=== PATIENT | female | born 1940 | race Caucasian/White ===

== ENCOUNTER 2016-03-10 13:52 | Emergency (ER) | payer OTHER, BC ==
--- NOTE | 2016-03-10 15:18 | CPEKG ---
Heart Rate: 77 RR Interval: 779 P-R Interval: 172 QRSD Interval: 102 QT Interval: 440 QTC Interval: 499 P [place]: 72 QRS [place]: 12 T Wave [place]: 50 EKG Severity - ABNORMAL ECG - EKG Impression: SINUS RHYTHM EKG Impression: PROBABLE LEFT ATRIAL ABNORMALITY EKG Impression: ABNRM R PROG, CONSIDER ASMI OR LEAD PLACEMENT EKG Impression: BORDERLINE PROLONGED QT INTERVAL Electronically Signed By: Giles Grant 10-Mar-2016 20:16:23
[2016-03-10 15:37] LABS: % IMMATURE GRANULYOCYTES 0.8 % (0.0-1.1); ABSOLUTE IMMATURE GRANULOCYTES 0.06 10^3/uL (0.00-0.10); ADD DIFF? NO; ADD MORPH? NO; ADD SCAN? NO; ATYPICAL LYMPHOCYTE FLAG 10 (0-99); FRAGMENT RBC FLAG 0 (0-99); HEMATOCRIT 41.2 % (38.0-47.0); HEMOGLOBIN 13.8 g/dL (12.6-16.3); LEFT SHIFT FLG 0 (0-99); LIPEMIA HEMOLYSIS FLAG 80 (0-99); MEAN CELL HEMOGLOBIN 31.1 pg (27.9-34.1); MEAN CELL HEMOGLOBIN CONCENTR. 33.5 g/dL (32.4-36.7); MEAN CELL VOLUME 92.8 fL (81.5-99.8); MEAN PLATELET VOLUME 8.8 fL (8.7-11.7); PLATELET CLUMPS FLAG 0 (0-99); PLATELET COUNT 199 10^3/uL (150-400); RED BLOOD CELL COUNT 4.44 10^6/uL (4.18-5.33)
[2016-03-10 15:58] LABS: ANION GAP 10 mEq/L (8-16); CALCIUM 9.1 mg/dL (8.5-10.4); CARBON DIOXIDE 28 mEq/l (22-31); CHLORIDE 103 mEq/L (97-110); GLOMERULAR FILTRATION RATE 54; GLUCOSE 145 mg/dL (70-100); POTASSIUM 4.3 mEq/L (3.5-5.2); SODIUM 141 mEq/L (134-144)
--- NOTE | 2016-03-10 16:12 | EDPHY ---
H & P Stated Complaint: Pain behind L knee x years;worse x 4days;brief episode sharp pain R breast Time Seen by Provider: 03/10/16 15:30 - Personal History Current Tetanus Diphtheria and Acellular Pertussis (TDAP): Yes Tetanus Vaccine Date: 2011 - Medical/Surgical History Hx Asthma: Yes Hx Chronic Respiratory Disease: No Hx Diabetes: No Hx Cardiac Disease: No Hx Renal Disease: No Hx Cirrhosis: No Hx Alcoholism: No Hx HIV/AIDS: No Hx Splenectomy or Spleen Trauma: No Other PMH: asthma, hysterectomy, left knee surgery, bladder suspension, tonsillectomy, sinus surgery, lerft foot x 2, hernia repair, parathyroid surgery , rright wrist ganglion cyst removal, bilateral brest biopsies x 2 - Social History Smoking Status: Never smoked Constitutional: Initial Vital Signs Temperature (C) 37.2 C 03/10/16 14:00 Heart Rate 75 03/10/16 14:00 Respiratory Rate 16 03/10/16 14:00 Blood Pressure 153/77 H 03/10/16 14:00 O2 Sat (%) 93 03/10/16 14:00 O2 Delivery Mode Room Air Allergies/Adverse Reactions: cefuroxime axetil [From Ceftin] Allergy (Intermediate, Verified 09/26/14 21:20) Hives Home Medications: Medication Instructions Recorded Albuterol [Proventil Inhaler HFA 1 - 2 puffs IH Q4 PRN 12/05/11 (*)] Montelukast Sodium [Singulair 10 10 mg PO DAILY 12/05/11 mg (*)] Aspirin [Aspirin 81mg (*)] 81 mg PO DAILY@18 09/18/14 Calcium Carbonate [Oyster Shell 1,000 mg PO DAILY@18 09/18/14 Calcium 500 mg (*)] Cholecalciferol Vit D3 [Vitamin D3 5,000 units PO DAILY@18 09/18/14 (*)] Citalopram [CeleXA 20 MG] 30 mg PO DAILY 09/18/14 Fluticasone Nasal [Flonase Nasal 2 sprays NASAL DAILY 09/18/14 [place]] Fluticasone/Salmeterol [Advair Hfa 2 puffs IH BID 09/18/14 115-21 Mcg Inhaler] Levothyroxine [Synthroid 100 mcg 50 mcg PO DAILY06 09/18/14 (*)] Polyethylene Glycol 3350 [Miralax 8.5 gm PO DAILY 09/18/14 17 gm (*)] Simvastatin [Zocor] 10 mg PO DAILY@18 09/18/14 Verapamil ER [Calan SR/ER 240MG 240 mg PO DAILY8 09/18/14 (*)] predniSONE 10 mg PO DAILY PRN 09/18/14 traZODone [traZODONE 100MG (*)] 100 mg PO HS 09/18/14 Azapantoprazole 03/10/16 Medical Decision Making ED Course/Re-evaluation: CHIEF COMPLAINT: Left leg pain, resolved chest pain HISTORY OF PRESENT ILLNESS: The patient is a 75 y/o female, with remote history of DVT, arriving with her complaining of left leg pain onset this morning and 20 minutes of chest pain. Her leg pain is primarily localized to her left calf and radiates up the back of her thigh. She also had a 20-minute episode of sharp, constant pain underneath her right breast that was associated with nausea. She says this pain feels exactly like a previous kidney stone. She is not on anticoagulants. REVIEW OF SYSTEMS: A 10 point review of systems was performed and is negative with the exception of the elements mentioned in the history of present illness. PHYSICAL EXAM: General Appearance: Alert, well hydrated, appropriate, and non-toxic appearing. Head: Atraumatic without scalp tenderness or obvious injury Eyes: Pupils equal, round, reactive to light and accommodation, EOMI, no trauma , no injection. Ears: Clear bilaterally, no perforation, normal landmarks Nose: Atraumatic, no rhinorrhea, clear. Throat: There is no erythema or exudates, no lesions, normal tonsils, mucus membranes moist. Neck: Supple, 2+ carotid upstroke, non-tender, no lymphadenopathy. Respiratory: No retractions, no distress, no wheezes, and no accessory muscle use. Lungs are clear to auscultation bilaterally. Cardiovascular: Regular rate and rhythm, rubs, or gallops. Bilateral carotid, radial, dorsalis pedis, and posterior tibial pulses intact. Good capillary refill all extremities. 2/6 systolic ejection murmur crescendo/decrescendo Gastrointestinal: Abdomen is soft, non-tender, non-distended, no masses, no rebound, no guarding, no peritoneal signs. Musculoskeletal: Normal active ROM of all extremities, atraumatic. Neurological: Alert, appropriate, and interactive. The patient has normal DTRs and non-focal cranial nerves, motor, sensory, and cerebellar exam. Skin: No rashes, good turgor, no nodules on palpation. PAST MEDICAL HISTORY: Remote history of DVT without PE, heart murmur, kidney stone FAMILY HISTORY: Daughter with bicuspid aortic valve and aneurysm SOCIAL HISTORY: at bedside DIAGNOSTICS/PROCEDURES/CRITICAL CARE TIME: The 12 lead EKG was interpreted by myself. Sinus rhythm rate 77, abnormal R wave progression, borderline prolonged QT interval. See hard copy and/or "tracemaster" electronic copy for interpretation. Study: Ultrasound of the: Left lower extremity Indication: Pain, previous DVT Results: US scan of the leg was obtained. The results of the study are no DVT. The study was read by the radiologist, Dr. Bergeron. I viewed the images myself on the PACS system. Study: CTA of the Chest Indication: Elevated d-dimer, chest pain, leg pain Results: CTA scan of the chest was obtained. The results of the study are no PE. The study was read by the radiologist, Dr. Dexter. I viewed the images myself on the PACS system. DIFFERENTIAL DIAGNOSIS: The differential diagnosis for the patient's leg pain and chest pain included but was not limited to hypoalbuminemia, congestive heart failure, cor pulmonale, venous stasis, trauma, DVT, PE, cardiac ischemia, kidney stone. MEDICAL DECISION MAKING: This is a healthy 75 y/o female with a remote history of DVT complaining of left leg pain and now-resolved 20-minute episode of chest pain today. She denies shortness of breath and is not hypoxemic here. IV established. Labs drawn including CBC, CHEM, d-dimer. UA ordered. Plan for left leg ultrasound and CTA if US or d-dimer is positive. 1610: D-dimer elevated at .55, labs otherwise unremarkable. Discussed these findings with the patient and recommended chest CTA. She agrees with CT. 1650: CT negative for PE. Patient will be discharged with referral to PCP for follow up. Strict return precautions given. Patient is comfortable with this plan. - Data Points Laboratory Results: Laboratory Results 03/10/16 15:25 03/10/16 15:25 03/10/16 15:25 WBC 7.26 10^3/uL (3.80-9.50) RBC 4.44 10^6/uL (4.18-5.33) Hgb 13.8 g/dL (12.6-16.3) Hct 41.2 % (38.0-47.0) MCV 92.8 fL (81.5-99.8) MCH 31.1 pg (27.9-34.1) MCHC 33.5 g/dL (32.4-36.7) RDW 13.0 % (11.5-15.2) Plt Count 199 10^3/uL (150-400) MPV 8.8 fL (8.7-11.7) Neut % (Auto) 64.2 % (39.3-74.2) Lymph % (Auto) 23.0 % (15.0-45.0) [place] % (Auto) 6.6 % (4.5-13.0) Eos % (Auto) 4.3 % (0.6-7.6) Baso % (Auto) 1.1 % (0.3-1.7) Nucleat RBC Rel Count 0.0 % (0.0-0.2) Absolute Neuts (auto) 4.66 10^3/uL (1.70-6.50) Absolute Lymphs (auto) 1.67 10^3/uL (1.00-3.00) Absolute Monos (auto) 0.48 10^3/uL (0.30-0.80) Absolute Eos (auto) 0.31 10^3/uL (0.03-0.40) Absolute Basos (auto) 0.08 10^3/uL (0.02-0.10) Absolute Nucleated RBC 0.00 10^3/uL (0-0.01) Immature Gran % 0.8 % (0.0-1.1) Immature Gran # 0.06 10^3/uL (0.00-0.10) D-Dimer 0.55 H ug/mLFEU (0.00-0.50) Sodium 141 mEq/L (134-144) Potassium 4.3 mEq/L (3.5-5.2) Chloride 103 mEq/L (97-110) Carbon Dioxide 28 mEq/l (22-31) Anion Gap 10 mEq/L (8-16) BUN 22 mg/dL (7-23) Creatinine 1.0 mg/dL (0.6-1.0) Estimated GFR 54 Glucose 145 H mg/dL (70-100) Calcium 9.1 mg/dL (8.5-10.4) Departure - Departure Disposition: Home, Routine, Self-Care Clinical Impression: Atypical chest pain, Left leg pain Condition: Good Instructions: Chest Pain (ED), Leg Pain (ED) Additional Instructions: Follow up with your primary care provider this week. Return to the ED for chest pain, shortness of breath, or other worsening of condition. Referrals: Meli Anthony MD [Primary Care Provider] - As per Instructions Report Scribed for: Giles Grant Report Scribed by: Lucrecia Chase Date of Report: 03/10/16 Time of Report: 16:33
[2016-03-10] MEDS ORDERED: IOPAMIDOL (ISOVUE 370) 100 ML BTL IV ONE (16:15)
--- NOTE | 2016-03-10 16:28 | US ---
Venous Doppler Study of Left Lower Extremity Clinical Indications: Left leg pain and swelling. Technique: High-frequency transducer was used for imaging and Doppler study of the deep veins of the leg from the upper calf to the groin. Pulsed Doppler and color Doppler were utilized, along with va rious maneuvers, to assess flow in the deep veins. Findings: The deep veins of the groin, thigh, knee, and upper calf are well displayed and are normal ly compressible. Doppler flow patterns are unremarkable. There is no evidence of deep venous thromb osis. There is normal compression of the greater saphenous vein without superficial thrombosis. The right common femoral vein is patent, competent and compressible. Impression: No evidence of deep vein thrombosis in the left leg. Critical results relayed by Dr. Hiram Bergeron to Dr. Giles Grant on March 10, 2016, at 1624 hours.
--- NOTE | 2016-03-10 16:57 | CT ---
CT Chest Angiogram March 10, 2016 Indication: Dyspnea. Technique: Thinly collimated multidetector helical CT imaging was performed through the chest while 90 mL of Isovue-370 were injected intravenously without complication. The images were then transferr ed to an independent workstation where multiplanar reconstructions were performed. Dose reduction akila hniques were utilized. Comparison: CT of the abdomen and pelvis dated September 18, 2014. Findings: CT Chest Angiogram: The pulmonary arterial system is well opacified. No intraluminal filling defect s to suggest acute or chronic thrombopulmonary embolic disease. The normal caliber thoracic aorta is tortuous with moderate calcified plaque. No dissection or penetrating ulcer. CT Chest: The lungs are clear except for mild diffuse peribronchial thickening. No airspace consolida tion, edema, or endobronchial lesion. Benign pleuroparenchymal scarring is present bilateral apices. The heart size is normal. No pericardial or pleural effusion. Calcified plaque is present along the l eft main coronary artery. Small hiatal hernia is unchanged. No enlarged lymph node or mass throughout the axilla, mediastinum, pulmonary ros, or imaged portion of the upper abdomen. A benign 4.2 cm cyst in the posterior segment right lobe of the liver is unchanged. No fracture or bone lesion. Impression: 1. No evidence of thrombopulmonary embolic disease. 2. Atherosclerotic normal caliber aorta. No dissection. 3. Minimal diffuse airways disease. No pulmonary edema or pneumonia. Comment: Results were discussed with Dr. Giles Grant at 4:50 p.m. on March 10, 2016.
[2016-03-10 17:10] VITALS: BP 160/90; PULSE 81; RESP 16; TEMP 97.9; O2SAT 92
== END 2016-03-10 17:09 | disposition home or self-care (01) ==
DX: M79.605 Pain in left leg (principal); R07.89 Other chest pain; J45.909 Unspecified asthma, uncomplicated; Z79.82 Long term (current) use of aspirin
CPT/HCPCS: 71275; 93005; 93971; 99285; Q9967

== ENCOUNTER → 2016-03-12 | Outpatient (CLI) | payer OTHER, BC ==
--- NOTE | 2016-03-12 09:31 | US ---
Ultrasound of the Abdomen Limited History: Right upper quadrant abdominal pain. R10.11. Findings: Gallbladder: A few subcentimeter mural nodules or polyps adherent to the gallbladder wall measuring u p to 4 mm without shadowing calculi. No wall thickening or pericholecystic fluid. Common bile duct is 4 mm in diameter which is normal. Liver: Diffusely increased in echogenicity without definite solid focal lesions and measures 17 cm in length. In the right lobe of the liver, there is a lobulated simple cyst measuring 4.6 x 4.6 x 4 cm without solid components or vascular flow. Renal: Right kidney measures 11 x 4 x 5 cm without hydronephrosis. In the right renal pelvis, there i s a 4 mm nonobstructive echogenic probable calculus. Pancreas: Homogeneous without peripancreatic fluid. Aorta: Atherosclerotic abdominal aorta without aneurysm. Impression: 1. Incidental gallbladder polyps up to 4 mm in size. 2. No cholelithiasis or biliary ductal dilation. 3. Hepatomegaly and hepatic steatosis with a 4.6 cm simple cyst in the right lobe of the liver. No de finite solid hepatic lesions. 4. Atherosclerotic aorta without aneurysm. 5. Nonobstructive right nephrolithiasis. 6. No peripancreatic fluid. 7. Consider additional imaging with CT, if clinically indicated.
== END ==
LOC: BMCIMAGING 08:33
PROVIDERS: ATTEND Internal Medicine
DX: N20.0 Calculus of kidney (principal); K82.4 Cholesterolosis of gallbladder; K76.0 Fatty (change of) liver, not elsewhere classified; I25.10 Atherosclerotic heart disease of native coronary artery without angina pectoris

== ENCOUNTER → 2016-04-23 | Outpatient (CLI) | payer OTHER, BC | LOC: BHFA 09:00 | PROVIDERS: ATTEND Internal Medicine Cardiovascular Disease | DX: R07.9 Chest pain, unspecified (principal); I10 Essential (primary) hypertension; E78.5 Hyperlipidemia, unspecified; R01.1 Cardiac murmur, unspecified ==

== ENCOUNTER → 2016-04-29 | Outpatient (CLI) | payer OTHER, BC | LOC: BHFA 10:45 | PROVIDERS: ATTEND Internal Medicine Cardiovascular Disease | DX: R01.1 Cardiac murmur, unspecified (principal) ==

== ENCOUNTER 2016-05-04 10:46 | Observation (INO) | payer OTHER, BC ==
--- NOTE | 2016-05-04 11:20 | CPEKG ---
Heart Rate: 73 RR Interval: 822 P-R Interval: 192 QRSD Interval: 100 QT Interval: 396 QTC Interval: 437 P [place]: 66 QRS [place]: 22 T Wave [place]: 28 EKG Severity - ABNORMAL ECG - EKG Impression: SINUS RHYTHM EKG Impression: VENTRICULAR TRIGEMINY Electronically Signed By: Giles Grant 04-May-2016 15:18:59
--- NOTE | 2016-05-04 11:31 | EDPHY ---
H & P Stated Complaint: pain under r breast/hx pna cp worked up 1 month ago Time Seen by Provider: 05/04/16 11:14 HPI/ROS: CHIEF COMPLAINT: Right chest and right upper quadrant abdominal pain at 10:00 a.m. today HISTORY OF PRESENT ILLNESS: 75-year-old female via private vehicle complaining of right lower chest pain which started 10:00 a.m. today and lasted 20 minutes will. Currently asymptomatic. Notes that the pain was also experiencing right upper quadrant she has a history of gallbladder polyps and nephrolithiasis however this does not feel like a kidney stone. She notes multiple recent symptoms for the past 6 weeks and has an appointment this with her primary care provider Dr. Meli Anthony. Starting 6 weeks ago she has been experiencing right hip pain, history of right hip arthroplasty performed by orthopedic surgeon Marilynn Knott. This started when she was on vacation, while in [place] she went to orthopedic urgent care and had a normal x-ray of her right hip. No fever no chills. She is able to bear weight albeit with pain. The pain is primarily over the right greater trochanter. She has also been experience UTI symptoms and recently completed a course of antibiotics. She has also been experiencing and intermittently productive cough since 04/14/2016. Denies: Back pain, rash, fever, chills, flu-like symptoms PRIMARY CARE PROVIDER:Dr. Meli Anthony REVIEW OF SYSTEMS: A ten point review of systems was performed and is negative with the exception of the items mentioned in the HPI PAST MEDICAL & SURGICAL HISTORY: Right hip arthroplasty. Gallbladder polyps. Nephrolithiasis. Hysterectomy. Asthma. Bladder suspension surgery. Tonsillectomy. SOCIAL HISTORY: nonsmoker PHYSICAL EXAM (Prior to examination, patient consented to physical exam, hands were washed and my usual and customary physical exam procedures followed) 1) GENERAL: Well-developed, well-nourished, alert and oriented. Appears to be in no acute distress. 2) HEAD: Normocephalic, atraumatic 3) HEENT: Pupils equal, round, reactive to light bilaterally. Sclera anicteric. Nasopharynx, oropharynx, clear, no lesions. Ears bilaterally with normal tympanic membranes. 4) NECK: Full range of motion, no meningeal signs. 5) LUNGS: Clear auscultation bilaterally, no wheezes, no rhonchi, no retractions. 6) HEART: Regular rate and rhythm, no murmur, no heave, no gallop. 7) ABDOMEN: No guarding, no rebound, no focal tenderness, negative McBurney's, positive Stevenson's, , negative Rovsing's, negative peritoneal sign, 8) MUSCULOSKELETAL: Moving all extremities, no focal areas of tenderness, no obvious trauma. No peripheral edema or discoloration. 9) BACK: No CVA tenderness, no midline vertebral tenderness, no fluctuance, no step-off, no obvious trauma, no visual or palpable abnormality. 10) SKIN: No rash, no petechiae. 11) Psychiatric: Patient is oriented X 3, there is no agitation. DIFFERENTIAL DIAGNOSIS: In no particular order, including but not limited to myocardial ischemia, Acute cholecystitis, biliary colic, pulmonary embolus, chest wall pain, pleural inflammation and pulmonary infectious causes. - Personal History Current Tetanus/Diphtheria Vaccine: Yes Tetanus Vaccine Date: 2011 - Medical/Surgical History Hx Asthma: Yes Hx Chronic Respiratory Disease: No Hx Diabetes: No Hx Cardiac Disease: No Hx Renal Disease: No Hx Cirrhosis: No Hx Alcoholism: No Hx HIV/AIDS: No Hx Splenectomy or Spleen Trauma: No Other PMH: asthma, hysterectomy, left knee surgery, bladder suspension, tonsillectomy, sinus surgery, lerft foot x 2, hernia repair, parathyroid surgery , rright wrist ganglion cyst removal, bilateral brest biopsies x 2 - Social History Smoking Status: Never smoked Constitutional: Initial Vital Signs Temperature (C) 36.6 C 05/04/16 10:51 Heart Rate 71 05/04/16 10:51 Respiratory Rate 18 05/04/16 10:51 Blood Pressure 119/51 L 05/04/16 10:51 O2 Sat (%) 92 05/04/16 10:51 O2 Delivery Mode Room Air Allergies/Adverse Reactions: cefuroxime axetil [From Ceftin] Allergy (Intermediate, Verified 05/04/16 10:50) Hives Home Medications: Medication Instructions Recorded Albuterol [Proventil Inhaler HFA 1 - 2 puffs IH Q4 PRN 12/05/11 (*)] Montelukast Sodium [Singulair 10 10 mg PO DAILY 12/05/11 mg (*)] Aspirin [Aspirin 81mg (*)] 81 mg PO DAILY@18 09/18/14 Calcium Carbonate [Oyster Shell 1,000 mg PO DAILY@18 09/18/14 Calcium 500 mg (*)] Cholecalciferol Vit D3 [Vitamin D3 5,000 units PO DAILY@18 09/18/14 (*)] Citalopram [CeleXA 20 MG] 30 mg PO DAILY 09/18/14 Fluticasone Nasal [Flonase Nasal 2 sprays NASAL DAILY 09/18/14 [place]] Fluticasone/Salmeterol [Advair Hfa 2 puffs IH BID 09/18/14 115-21 Mcg Inhaler] Levothyroxine [Synthroid 100 mcg 50 mcg PO DAILY06 09/18/14 (*)] Polyethylene Glycol 3350 [Miralax 8.5 gm PO DAILY 09/18/14 17 gm (*)] Simvastatin [Zocor] 10 mg PO DAILY@18 09/18/14 Verapamil ER [Calan SR/ER 240MG 240 mg PO DAILY8 09/18/14 (*)] predniSONE 10 mg PO DAILY PRN 09/18/14 traZODone [traZODONE 100MG (*)] 100 mg PO HS 09/18/14 Azapantoprazole 03/10/16 Medical Decision Making - Diagnostics Imaging: Chest, PA and Lateral History: Pain under right breast Comparison: June 14, 2015 Findings: Lungs are clear, without infiltrate or consolidation. Heart size is mildly enlarged with normal pulmonary vascularity. There is chronic atherosclerotic calcification in the thoracic aorta. There is no adenopathy or mass lesion. There is no pleural effusion, pneumomediastinum or pneumothorax. Chronic blunting of the right posterior costophrenic gutter is likely related to scarring. Bones are unremarkable for age. EKG leads overlie the chest. Impression: 1. Mild cardiomegaly without failure. 2. Aortic atherosclerotic disease. Dictated By: Erick Brown MD Images reviewed by myself 2:00 p.m.: CT angio chest interpreted by radiologist is positive for right lower lobe and left upper lobe pulmonary emboli. Images reviewed by myself ED Course/Re-evaluation: 11:30 a.m.: Discussed case Dr. Giles Grant in ER. Will obtain imaging studies including ultrasound, cardiac workup in re-evaluated. She inquired about obtaining in the ER MRI of her right hip. I do not think that emergent MRI of her right hip is indicated. Discussed case Dr. Giles Grant. 2:04 p.m.: Discussed case Dr. Giles Grant. Discussed results with the patient. Plan will be admission to the hospital for further evaluation. 2:15 p.m.: Phone consultation Dr. [place] Rose who will admit to [facility]. Dr. Rose would like to speak with the patient before initiating anticoagulant therapy to discuss options. - Data Points Laboratory Results: Laboratory Results 05/04/16 11:00 05/04/16 11:00 05/04/16 05/04/16 05/04/16 12:08 11:15 11:00 WBC RBC Hgb Hct MCV MCH MCHC RDW Plt Count MPV Neut % (Auto) Lymph % (Auto) [place] % (Auto) Eos % (Auto) Baso % (Auto) Nucleat RBC Rel Count Absolute Neuts (auto) Absolute Lymphs (auto) Absolute Monos (auto) Absolute Eos (auto) Absolute Basos (auto) Absolute Nucleated RBC Immature Gran % Immature Gran # PT 12.4 SEC SEC (12.0-15.0) INR 0.93 (0.83-1.16) APTT 21.5 SEC L SEC (23.0-38.0) D-Dimer Sodium 134 mEq/L mEq/L (134-144) Potassium 3.9 mEq/L mEq/L (3.5-5.2) Chloride 96 mEq/L L mEq/L (97-110) Carbon Dioxide 27 mEq/l mEq/l (22-31) Anion Gap 11 mEq/L mEq/L (8-16) BUN 35 mg/dL H mg/dL (7-23) Creatinine 1.1 mg/dL H mg/dL (0.6-1.0) Estimated GFR 49 Glucose 317 mg/dL H mg/dL (70-100) Calcium 9.5 mg/dL mg/dL (8.5-10.4) Total Bilirubin 1.0 mg/dL mg/dL (0.1-1.4) Conjugated Bilirubin 0.3 mg/dL mg/dL (0.0-0.5) Unconjugated Bilirubin 0.7 mg/dL mg/dL (0.0-1.1) AST 17 IU/L IU/L (14-46) ALT 40 IU/L IU/L (9-52) Alkaline Phosphatase 71 IU/L IU/L (38-126) Troponin I < 0.012 ng/mL ng/mL (0-0.034) Total Protein 6.7 g/dL g/dL (6.3-8.2) Albumin 4.0 g/dL g/dL (3.5-5.0) Lipase 239.0 IU/L IU/L (23-300) Urine Color YELLOW Urine Appearance HAZY Urine pH 5.0 (5.0-7.5) Ur Specific [place] 1.026 (1.002-1.030) Urine Protein NEGATIVE (NEGATIVE) Urine Ketones NEGATIVE (NEGATIVE) Urine Blood NEGATIVE (NEGATIVE) Urine Nitrate NEGATIVE (NEGATIVE) Urine Bilirubin NEGATIVE (NEGATIVE) Urine Urobilinogen NEGATIVE EU EU (0.2-1.0) Ur Leukocyte Esterase NEGATIVE (NEGATIVE) Urine RBC 1-3 /hpf /hpf (0-3) Urine WBC 1-3 /hpf /hpf (0-3) Ur Epithelial Cells NONE SEEN /lpf /lpf (NONE-1+) Urine Mucus TRACE /lpf /lpf (NONE-1+) Urine Glucose 2+ H (NEGATIVE) 05/04/16 05/04/16 11:00 11:00 WBC 9.45 10^3/uL 10^3/uL (3.80-9.50) RBC 4.57 10^6/uL 10^6/uL (4.18-5.33) Hgb 14.2 g/dL g/dL (12.6-16.3) Hct 41.4 % % (38.0-47.0) MCV 90.6 fL fL (81.5-99.8) MCH 31.1 pg pg (27.9-34.1) MCHC 34.3 g/dL g/dL (32.4-36.7) RDW 13.5 % % (11.5-15.2) Plt Count 190 10^3/uL 10^3/uL (150-400) MPV 9.8 fL fL (8.7-11.7) Neut % (Auto) 67.8 % % (39.3-74.2) Lymph % (Auto) 23.2 % % (15.0-45.0) [place] % (Auto) 5.8 % % (4.5-13.0) Eos % (Auto) 1.1 % % (0.6-7.6) Baso % (Auto) 0.6 % % (0.3-1.7) Nucleat RBC Rel Count 0.0 % % (0.0-0.2) Absolute Neuts (auto) 6.41 10^3/uL 10^3/uL (1.70-6.50) Absolute Lymphs (auto) 2.19 10^3/uL 10^3/uL (1.00-3.00) Absolute Monos (auto) 0.55 10^3/uL 10^3/uL (0.30-0.80) Absolute Eos (auto) 0.10 10^3/uL 10^3/uL (0.03-0.40) Absolute Basos (auto) 0.06 10^3/uL 10^3/uL (0.02-0.10) Absolute Nucleated RBC 0.00 10^3/uL 10^3/uL (0-0.01) Immature Gran % 1.5 % H % (0.0-1.1) Immature Gran # 0.14 10^3/uL H 10^3/uL (0.00-0.10) PT INR APTT D-Dimer 0.70 ug/mLFEU H ug/mLFEU (0.00-0.50) Sodium Potassium Chloride Carbon Dioxide Anion Gap BUN Creatinine Estimated GFR Glucose Calcium Total Bilirubin Conjugated Bilirubin Unconjugated Bilirubin AST ALT Alkaline Phosphatase Troponin I Total Protein Albumin Lipase Urine Color Urine Appearance Urine pH Ur Specific [place] Urine Protein Urine Ketones Urine Blood Urine Nitrate Urine Bilirubin Urine Urobilinogen Ur Leukocyte Esterase Urine RBC Urine WBC Ur Epithelial Cells Urine Mucus Urine Glucose Departure - Departure Disposition: [facility] Clinical Impression: Pulmonary embolism Qualifiers: Pulmonary embolism type: other Chronicity: acute Acute cor pulmonale presence: without acute cor pulmonale Qualified Code(s): I26.99 - Other pulmonary embolism without acute cor pulmonale Condition: Fair Referrals: Meli Anthony MD [Primary Care Provider] - As per Instructions
[2016-05-04 11:38] LABS: % IMMATURE GRANULYOCYTES 1.5 % (0.0-1.1); ABSOLUTE IMMATURE GRANULOCYTES 0.14 10^3/uL (0.00-0.10); ADD DIFF? NO; ADD MORPH? NO; ADD SCAN? NO; ATYPICAL LYMPHOCYTE FLAG 0 (0-99); FRAGMENT RBC FLAG 0 (0-99); HEMATOCRIT 41.4 % (38.0-47.0); HEMOGLOBIN 14.2 g/dL (12.6-16.3); LEFT SHIFT FLG 10 (0-99); LIPEMIA HEMOLYSIS FLAG 90 (0-99); MEAN CELL HEMOGLOBIN 31.1 pg (27.9-34.1); MEAN CELL HEMOGLOBIN CONCENTR. 34.3 g/dL (32.4-36.7); MEAN CELL VOLUME 90.6 fL (81.5-99.8); MEAN PLATELET VOLUME 9.8 fL (8.7-11.7); PLATELET CLUMPS FLAG 0 (0-99); PLATELET COUNT 190 10^3/uL (150-400); RED BLOOD CELL COUNT 4.57 10^6/uL (4.18-5.33); RED CELL DISTRIBUTION WIDTH 13.5 % (11.5-15.2)
[2016-05-04 11:44] LABS: ALANINE AMINOTRANSFERASE 40 IU/L (9-52); ALKALINE PHOSPHATASE 71 IU/L (38-126); ANION GAP 11 mEq/L (8-16); ASPARTATE AMINOTRANSFERASE 17 IU/L (14-46); BILIRUBIN-CONJUGATED 0.3 mg/dL (0.0-0.5); BILIRUBIN-UNCONJUGATED 0.7 mg/dL (0.0-1.1); CALCIUM 9.5 mg/dL (8.5-10.4); CARBON DIOXIDE 27 mEq/l (22-31); CHLORIDE 96 mEq/L (97-110); CREATININE 1.1 mg/dL (0.6-1.0); GLOMERULAR FILTRATION RATE 49; GLUCOSE 317 mg/dL (70-100); POTASSIUM 3.9 mEq/L (3.5-5.2); SODIUM 134 mEq/L (134-144); TOTAL PROTEIN 6.7 g/dL (6.3-8.2)
[2016-05-04 11:56] LABS: TROPONIN I < 0.012 ng/mL (0-0.034)
[2016-05-04 12:55] LABS: COLOR YELLOW; LEUKOCYTE ESTERASE,URINE NEGATIVE (NEGATIVE); NITRITE,URINE NEGATIVE (NEGATIVE)
[2016-05-04 13:10] LABS: MUCUS TRACE /lpf (NONE-1+)
[2016-05-04] MEDS ORDERED: IOPAMIDOL (ISOVUE-370) 150 ML BTL IV ONE (13:29)
[2016-05-04 14:16] LABS: INR 0.93 (0.83-1.16); PROTIME(PATIENT) 12.4 SEC (12.0-15.0)
[2016-05-04 14:17] LABS: APTT 21.5 SEC (23.0-38.0)
[2016-05-04] MEDS ORDERED: ONDANSETRON DISINTEGRATING 4 MG TAB PO PRN (14:56)
[2016-05-04] MEDS ORDERED: ACETAMINOPHEN 325 MG TAB PO PRN (14:56)
[2016-05-04] MEDS ORDERED: ONDANSETRON 4 MG/2 ML VIAL IVP PRN (14:56)
[2016-05-04] MEDS ORDERED: NS 1,000 ML IV SCH (15:00)
[2016-05-04] MEDS ORDERED: BENZONATATE 100 MG CAP PO PRN (15:03)
--- NOTE | 2016-05-04 15:35 | CPEKG ---
Heart Rate: 64 RR Interval: 938 P-R Interval: 196 QRSD Interval: 92 QT Interval: 440 QTC Interval: 454 P [place]: 68 QRS [place]: 36 T Wave [place]: 19 EKG Severity - ABNORMAL ECG - EKG Impression: SINUS RHYTHM EKG Impression: VENTRICULAR TRIGEMINY Electronically Signed By: Hesham Ramirez 05-May-2016 17:04:28
--- NOTE | 2016-05-04 16:04 | GHP ---
DATE OF ADMISSION: 05/04/2016 CHIEF COMPLAINT: Right chest pain, new bilateral pulmonary embolism. PRIMARY PHYSICIAN: Dr. Anthony. PRIMARY IDEA WORKER: Dr. Norman at [facility]. PRIMARY ORTHOPEDIC DOCTOR: Dr. Forte. HPI: Patient is a pleasant 75-year-old female with history of asthma, migraines and hypothyroidism, who was coming to [facility] for routine labs and developed chest pain under right breast. It was deep intense and lasted approximately 20 minutes and there was no radiation, associated shortness of breath, nausea, vomiting. No loss of consciousness. She just finished abx and prednisone for pneumonia on Wednesday. She was having dizziness yesterday, but it has since improved. She has been up the last couple nights due to persistent cough. Also, recently treated for UTI. She has been traveling quite a bit last couple months: initially in [place] visiting her daughter in March, then to [place]. She arrived back in [place] on April 02 and then here in [place] on April 13. Has a remote history of a left lower extremity DVT which she does not recall the circumstances. She has also been complaining of right hip pain where she had a total hip replacement. She recently saw her orthopedist who suggested physical therapy. She denies any fevers, chills, sweats or swelling over that leg. REVIEW OF SYSTEMS: I completed a 10-point review of systems, negative except as noted in HPI. PAST MEDICAL HISTORY: 1. Obstructive uropathy. 2. Kidney stones. 3. Hypertension. 4. Asthma. 5. Migraines. 6. Hyperlipidemia. 7. GERD. 8. Hypothyroidism. 9. Remote left lower extremity DVT. 10. Recently treated for pneumonia. 11. Recently treated for UTI. PAST SURGICAL HISTORY: 1. Multiple bladder surgeries. 2. Hysterectomy. 3. Left knee surgery. 4. Tonsillectomy. 5. Sinus surgery. 6. Hernia repair. 7. Parathyroid surgery. 8. Bilateral breast biopsy. 9. Right ADITYA, followed by orthopedist in [place]. FAMILY HISTORY: Father of an CA at age 79. Mother of CHF at age 94. No history of clots. SOCIAL HISTORY: Lives with her in [place]. Has a daughter in [place]. No tobacco. Social alcohol. No illicits. ALLERGIES: Ceftin, hives. HOME MEDICATIONS: 1. Trazodone 100 mg at bedtime. 2. Prednisone 10 mg daily, completed yesterday. 3. Verapamil 240 mg daily. 4. Zocor 10 mg daily. 5. MiraLAX p.r.n. 6. Singulair 10 mg daily. 7. Levothyroxine 100 mcg daily. 8. Advair 2 puffs b.i.d. 9. Flonase 2 sprays nasal daily. 10. Citalopram 30 mg daily. 11. Vitamin D3 at 5000 units daily. 12. Calcium carbonate 1000 mg daily. 13. dose unknown. 14. Aspirin 81 mg daily. 15. Albuterol p.r.n. PHYSICAL EXAMINATION: VITAL SIGNS: Temperature 36.6, blood pressure is 119/51 , heart rate is 80s, respiration 18, 92% on room air. GENERAL: Patient is mildly tired appearing. No acute distress. HEENT: PERRLA. EOMI. Mildly dry mucous membranes. CV: Regular rate and rhythm. No murmurs, gallops, or rubs. LUNGS: Diffuse rhonchi throughout. Coughing with deep inspiration. ABDOMEN : Soft, nontender, nondistended. Positive bowel sounds. : No Jeong. No suprapubic tenderness. MUSCULOSKELETAL: Moving all 4 extremities. NEURO: 2 through 12 intact. PSYCH: Alert and oriented x3. LABS: WBC is 9, hemoglobin 14, hematocrit 41, platelets 190. Coags: INR 0.9, PT is 12, PTT is 21. D-dimer is 0.7. Sodium 134, potassium 3.9, chloride 96, carbon dioxide 27, BUN is 35, creatinine is 1.1 (baseline is 0.9 to 1). Glucose is 317. LFTs within normal. Troponin is less than 0.12. BNP is 527. IMAGING: CTA: New small volume of acute thrombo pulmonary embolic disease in the right lower lobe in anterior segmental left upper lobe. No pulmonary hemorrhage or infarction. Minimal airway disease is unchanged. Abdominal ultrasound: Multiple gallbladder wall polyps or stones. No evidence of cholecystitis, fatty infiltration of liver, hepatic cyst. Chest x-ray personally reviewed by me. Mild cardiomegaly. No edema. No pleural effusion. EKG as personally reviewed by me. Normal sinus rhythm. Trigeminy. ASSESSMENT/PLAN: 1. Acute bilateral pulmonary embolism: suspect that these are provoked given recent infection with less mobility, as well as extensive travel. She is hemodynamically stable on room air. No evidence of right heart strain on EKG. Negative troponin. We will repeat both of these. BNP is mildly elevated. There is no evidence of infarct or fluid overload on CTA. We will monitor on telemetry overnight. I had extensive conversation about treatment options and the patient opted for Xarelto. Can consider lifelong anticoagulation given history of clot in the past, but I will have patient follow up with her PCP. US MOORE pending. Has colonoscopy 3 years ago with polyps and recent negative mammogram. 2. Recent pneumonia: completed both steroids and antibiotics regimen. Currently stable on RA. Cont antitussives. 3. Hypothyroidism: levothyroxine. 4. Gastroesophageal reflux. PPI. 5. Hyperlipidemia: Statin. 6. History of migraines. Home medications. 7. Asthma. No evidence of exacerbation. Did complete prednisone recently. Continue home inhalers. 8. Benign hypertension. Continue home medications. 9. Right hip pain: Patient with a history of a total hip arthroplasty. She was recently seen by orthopedist who stated joint was stable and is continuing physical therapy at this time. May warrant further imaging as an outpatient if pain persists. 10. Diet: Regular. 11. DVT prophylaxis. Patient on Xarelto. DISPOSITION: Patient warrants observation admission given acute chest pain, weakness, new pulmonary embolism. We will monitor on telemetry. Suspect discharge in the morning if clinically stable. /[id number]/MODL MTDD
[2016-05-04] MEDS: RIVAROXABAN 15 MG TAB PO SCH (17:53)
[2016-05-04 18:26] LABS: TROPONIN I < 0.012 ng/mL (0-0.034)
[2016-05-04] MEDS ORDERED: NON-FORMULARY NEW DRUG (Simvastatin [Zocor] 5 MG) PO SCH (21:00)
[2016-05-04] MEDS ORDERED: NON-FORMULARY NEW DRUG (Ranitidine Hcl [Ranitidine Hcl] 150 MG) PO SCH ×2 (21:00)
[2016-05-04] MEDS ORDERED: FAMOTIDINE 20 MG TAB PO SCH (21:00)
[2016-05-04] MEDS ORDERED: ESOMEPRAZOLE MAGNESIUM 40 MG PO SCH (21:00)
[2016-05-04] MEDS ORDERED: traZODone 100 MG TAB PO SCH (21:00)
[2016-05-04] MEDS ORDERED: MELATONIN 3 MG TAB PO SCH (21:00)
[2016-05-04] MEDS: PANTOPRAZOLE SODIUM 40 MG TAB PO SCH (21:22)
[2016-05-04] MEDS: FLUTICASONE NASAL 120 SPRAYS/16 GM MDI EACHNARE SCH (21:22)
[2016-05-04] MEDS: BUDESONIDE 0.5 MG/2 ML AMPUL.NEB IH SCH (21:22)
[2016-05-04] MEDS: AZELASTINE NASAL MDI EACHNARE SCH (21:22)
[2016-05-04] MEDS: NYSTATIN SUSP 500000 UNIT/5 ML UDCUP PO SCH (21:23)
[2016-05-05] MEDS ORDERED: LEVOTHYROXINE 50 MCG TAB PO SCH (06:00)
[2016-05-05] MEDS ORDERED: LEVOTHYROXINE 100 MCG TAB PO SCH (06:00)
[2016-05-05 06:22] LABS: ANION GAP 8 mEq/L (8-16); CALCIUM 8.8 mg/dL (8.5-10.4); CARBON DIOXIDE 24 mEq/l (22-31); CHLORIDE 100 mEq/L (97-110); GLOMERULAR FILTRATION RATE 54; GLUCOSE 409 mg/dL (70-100); POTASSIUM 4.1 mEq/L (3.5-5.2); SODIUM 132 mEq/L (134-144)
[2016-05-05] MEDS ORDERED: VERAPAMIL ER 240 MG TAB PO SCH (08:00)
[2016-05-05] MEDS: BUDESONIDE 0.5 MG/2 ML AMPUL.NEB IH SCH (08:51)
[2016-05-05 08:58] VITALS: BP 133/71; PULSE 74; RESP 18; TEMP 98.1; O2SAT 94
[2016-05-05] MEDS: AZELASTINE NASAL MDI EACHNARE SCH (08:59)
[2016-05-05] MEDS: FLUTICASONE NASAL 120 SPRAYS/16 GM MDI EACHNARE SCH (08:59)
[2016-05-05] MEDS ORDERED: MONTELUKAST SODIUM 10 MG TAB PO SCH (09:00)
[2016-05-05] MEDS ORDERED: CYANO/VITAMIN B12 1000 MCG TAB PO SCH (09:00)
[2016-05-05] MEDS ORDERED: CITALOPRAM 20 MG TAB PO SCH (09:00)
[2016-05-05] MEDS ORDERED: PRAVASTATIN SODIUM 10 MG TAB PO SCH (09:00)
[2016-05-05] MEDS: PANTOPRAZOLE SODIUM 40 MG TAB PO SCH (09:00)
[2016-05-05] MEDS ORDERED: POLYETHYLENE GLYCOL 3350 17 GM PKT PO SCH (09:00)
[2016-05-05] MEDS: NYSTATIN SUSP 500000 UNIT/5 ML UDCUP PO SCH (09:00)
[2016-05-05] MEDS ORDERED: OMEGA-3 FATTY ACIDS 1,000 MG CAP PO SCH (09:00)
[2016-05-05] MEDS ORDERED: MULTIVITAMINS 1 EACH TAB PO SCH (09:00)
[2016-05-05] MEDS ORDERED: MULTIVITAMIN PO SCH ×2 (09:00)
[2016-05-05] MEDS: RIVAROXABAN 15 MG TAB PO SCH (09:18)
--- NOTE | 2016-05-05 09:52 | PDDCSUM ---
Discharge Summary Discharge Summary: Dates of service 05/04-05/05/16 Discharge dx: # bilateral PE # chest pain # recent pna # hip pain # hypothyroid # GERD # hld Consultations/procedures: none 75 yo with recent pna and prolonged issues with hip pain requiring surgery presenting with chest pain found to be 2/2 PE # PE: patient HD stable, no o2 requirement, not having significant pain and thought to be safe for dc home on xarelto. Likely triggered by prolonged immobility in the setting of recent pna and hip pain. She will f/u with her PCP. # chest pain: 2/2 above # chronic medical issues: hypothyroid, gerd, migraines, HLD, recent pna DC home Meds: see EHR, include xarelto > 35 mintues spent in dc more than half in counseling patient regarding f/u care plans
[2016-05-05] MEDS ORDERED: CHOLECALCIFEROL VIT D3 1,000 UNITS TAB PO SCH (18:00)
[2016-05-06] MEDS ORDERED: KETOCONAZOLE 2% 120 ML SHAMPOO TP SCH (08:00)
== END 2016-05-05 13:50 | disposition home or self-care (01) ==
LOC: F1N 14:39
PROVIDERS: ADMIT Internal Medicine; ATTEND Internal Medicine
DX: I26.99 Other pulmonary embolism without acute cor pulmonale (principal); I10 Essential (primary) hypertension; E03.9 Hypothyroidism, unspecified; E78.5 Hyperlipidemia, unspecified; K21.9 Gastro-esophageal reflux disease without esophagitis; J45.909 Unspecified asthma, uncomplicated; M25.551 Pain in right hip; K82.4 Cholesterolosis of gallbladder; K76.0 Fatty (change of) liver, not elsewhere classified; N20.0 Calculus of kidney
CPT/HCPCS: 71020; 71275; 76705; 93005; 93970; G0378; Q9967

== ENCOUNTER → 2016-05-12 | Outpatient (CLI) | payer OTHER, BC | LOC: BMCIMAGING 15:42 | PROVIDERS: ATTEND Internal Medicine | DX: J45.909 Unspecified asthma, uncomplicated (principal); Z87.01 Personal history of pneumonia (recurrent); I51.7 Cardiomegaly ==

== ENCOUNTER 2017-03-02 12:01 | Emergency (ER) | payer OTHER, BC ==
[2017-03-02 12:13] VITALS: BP 156/79; PULSE 77; RESP 19; TEMP 98.8; O2SAT 92
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
== END 2017-03-02 13:04 | disposition home or self-care (01) ==
DX: M25.561 Pain in right knee (principal); J45.909 Unspecified asthma, uncomplicated

== ENCOUNTER → 2017-03-15 | Outpatient (CLI) | payer OTHER, BC | LOC: FIMAGING 11:57 | PROVIDERS: ATTEND Internal Medicine | DX: Z12.31 Encounter for screening mammogram for malignant neoplasm of breast (principal) ==

== ENCOUNTER → 2017-04-15 | Outpatient (CLI) | payer OTHER, BC | LOC: FIMAGING 10:22 | PROVIDERS: ATTEND Internal Medicine | DX: K82.4 Cholesterolosis of gallbladder (principal) ==

== ENCOUNTER 2017-06-12 14:07 | Emergency (ER) | payer OTHER, BC ==
[2017-06-12] MEDS ORDERED: ONDANSETRON 4 MG/2 ML VIAL IVP ONE (15:46)
--- NOTE | 2017-06-12 15:50 | EDPHY ---
H & P Time Seen by Provider: 06/12/17 15:35 HPI/ROS: CHIEF COMPLAINT: Right knee redness and pain HISTORY OF PRESENT ILLNESS: 76-year-old female presents 4 days after right knee replacement with right knee redness and pain. She underwent a right knee replacement at [facility] 4 days ago. She was discharged home 2 days ago. She was doing well until today, when she noticed that her right knee was red and swollen. Associated with increased pain of the right knee and moderate achiness in her right calf. She has felt chilled, but no fever. No drainage from the surgical wound. REVIEW OF SYSTEMS: Constitutional: No fever, no chills Eyes: No visual changes ENT: No sore throat Respiratory: No cough, no shortness of breath Cardiac: No chest pain Gastrointestinal: No nausea, no vomiting, no abdominal pain Genitourinary: no dysuria Skin: No rash Neurological: No headache, no numbness, no weakness Psychiatric: No depression Past Medical/Surgical History: Right hip and knee replacement Social History: Smoking Status: Never smoked Physical Exam: General Appearance: Alert, pleasant Eyes: Pupils equal and round, no conjunctival pallor or injection ENT, Mouth: Mucous membranes moist Neck: Normal inspection Respiratory: Lungs are clear to auscultation Cardiovascular: Regular rate and rhythm Gastrointestinal: Abdomen is soft and nontender Neurological: A&O, nonfocal exam Skin: Warm and dry Extremities: Right knee-diffuse erythema, warmth and tenderness over the anterior aspect of the right knee, herman in place, no drainage; mild tenderness and swelling of the right calf Psychiatric: Mood and affect normal Constitutional: Initial Vital Signs Temperature (C) 36.8 C 06/12/17 14:11 Heart Rate 76 06/12/17 14:11 Respiratory Rate 18 06/12/17 14:11 Blood Pressure 108/53 L 06/12/17 14:11 O2 Sat (%) 95 06/12/17 14:11 O2 Delivery Mode Room Air Allergies/Adverse Reactions: cefuroxime axetil [From Ceftin] Allergy (Intermediate, Verified 05/04/16 10:50) Hives Home Medications: Medication Instructions Recorded Albuterol [Proventil Inhaler HFA 1 - 2 puffs IH Q4 PRN 12/05/11 (*)] Montelukast Sodium [Singulair 10 10 mg PO DAILY 12/05/11 mg (*)] Cholecalciferol Vit D3 [Vitamin D3 5,000 units PO DAILY@18 09/18/14 (*)] Citalopram [CeleXA 20 MG] 30 mg PO DAILY 09/18/14 Fluticasone Nasal [Flonase Nasal 2 sprays NASAL BID 09/18/14 [place]] Levothyroxine [Synthroid 100 mcg 50 mcg PO DAILY06 09/18/14 (*)] Polyethylene Glycol 3350 [Miralax 8.5 gm PO DAILY 09/18/14 17 gm (*)] Verapamil ER [Calan SR/ER 240MG 240 mg PO DAILY8 09/18/14 (*)] predniSONE 10 mg PO DAILY PRN 09/18/14 traZODone [traZODONE 100MG (*)] 100 mg PO HS 09/18/14 Azelastine HCl 2 sprays EACHNARE BID 05/04/16 Budesonide [BUDESONIDE] 1 cap NASAL BID 05/04/16 Cyanocobalamin [Vitamin B12 (*)] 1,000 mcg PO DAILY 05/04/16 Esomeprazole Magnesium 40 mg PO BID 05/04/16 Fluticasone Propionate [Flovent 2 puffs IN BID 05/04/16 Hfa] Fluticasone Propionate [Flovent 2 puffs IN BID 05/04/16 Hfa] Ketoconazole 1 chema TP MOWETH@0800 05/04/16 Melatonin [Melatonin 3 MG (*)] 3 mg PO HS 05/04/16 Multivitamin [Multi-Day Vitamins] 1 each PO DAILY 05/04/16 NYSTATIN 5 ml PO TID 05/04/16 [place]-3 Fatty Acids [Fish Oil 1000 1,000 mg PO DAILY 05/04/16 mg (*)] Ranitidine HCl 150 mg PO HS 05/04/16 SIMVASTATIN [Zocor] 5 mg PO HS 05/04/16 Acetaminophen [Tylenol 325mg (*)] 650 mg PO Q4HRS PRN #0 tab 05/05/16 Benzonatate [Tessalon Pearles] 200 mg PO TID PRN #28 cap 05/05/16 Codeine Phosphate/Guaifenesin 5 ml PO Q6H PRN #120 ml 05/05/16 [Codeine-Guaifen 10-100 mg/5 ml] Rivaroxaban [Xarelto 15mg (*)] 15 mg PO BIDMEAL #42 tab 05/05/16 Rivaroxaban [Xarelto] 20 mg PO DAILY #14 tab 05/05/16 Medical Decision Making - Diagnostics Imaging Results: RLE sono: negative for DVT ED Course/Re-evaluation: 1545: This patient presents with a postoperative infection. Pt afebrile and nontoxic. Considered arthoscentesis, but entire knee red, no safe area for tap. Pt's orthopedic surgeon at [facility] paged. Morphine IV for pain control. 1610: Consulted with Dr. Mcintyre, requests pt transfer to [facility] ED. Requests that we hold abx for now. Pt agrees with transfer. d/w Dr. Shaggy Lemus at [facility] ED, accepts transfer to ED. EMTALA completed , will drive. Pt NPO throughout her ED stay, in anticipation of operative intervention. LLE sono: negative for DVT Differential Diagnosis: includes though not limited to DVT, cellulitis, joint infection - Data Points Laboratory Results: Laboratory Results 06/12/17 16:02 06/12/17 16:02 Microbiology Results: MICROBIOLOGY 06/12/17 16:25 Blood Blood Culture - Preliminary 06/12/17 16:02 Blood Blood Culture - Preliminary Medications Given: Discontinued Medications Morphine Sulfate (Morphine) 4 mg IVP EDNOW ONE Stop: 06/12/17 15:47 Last Admin: 06/12/17 15:56 Dose: 4 mg Morphine Sulfate (Morphine) 2 mg IVP EDNOW ONE Stop: 06/12/17 16:52 Last Admin: 06/12/17 17:07 Dose: 2 mg Ondansetron HCl (Zofran) 4 mg IVP EDNOW ONE Stop: 06/12/17 15:47 Last Admin: 06/12/17 15:56 Dose: 4 mg Departure - Departure Disposition: Acute Care Hospital Not [facility] Clinical Impression: Postoperative infection of knee Qualifiers: Encounter type: initial encounter Qualified Code(s): T81.4XXA - Infection following a procedure, initial encounter Condition: Fair Instructions: Additional Information Additional Instructions: Go directly to [facility] Emergency Department. Do not eat or drink anything. Referrals: Meli Anthony MD [Primary Care Provider] - As per Instructions
[2017-06-12 16:20] LABS: PLATELET COUNT 222 10^3/uL (150-400)
[2017-06-12 17:16] VITALS: BP 117/53
== END 2017-06-12 17:20 | disposition short-term general hospital (02) ==
DX: T81.4XXA Infection following a procedure, initial encounter (principal); Z79.01 Long term (current) use of anticoagulants; Y82.8 Other medical devices associated with adverse incidents
CPT/HCPCS: 93971; 96374; 96375; 96376; 99285; J2270; J2405

== ENCOUNTER 2017-09-04 23:12 | Emergency (ER) | payer OTHER, BC ==
--- NOTE | 2017-09-05 00:17 | EDPHY ---
H & P Stated Complaint: POS BLADDER INFX/LOOSE STOOL, BERRIOS - Personal History Current Tetanus Diphtheria and Acellular Pertussis (TDAP): No Tetanus Vaccine Date: 2011 - Medical/Surgical History Hx Asthma: Yes Hx Chronic Respiratory Disease: No Hx Diabetes: No Hx Cardiac Disease: No Hx Renal Disease: No Hx Cirrhosis: No Hx Alcoholism: No Hx HIV/AIDS: No Hx Splenectomy or Spleen Trauma: No Other PMH: asthma, hysterectomy, left knee surgery, bladder suspension, tonsillectomy, sinus surgery, left foot x 2, hernia repair, parathyroid surgery , right wrist ganglion cyst removal, bilateral breast biopsies x 2, r hip replacement, TONYA, GERD, R KNEE REPLACEMENT, PE'S - Social History Smoking Status: Never smoked <Bartolo Schulz - Last Filed: 09/05/17 00:14> <Chela Tellez - Last Filed: 09/05/17 03:30> Time Seen by Provider: 09/04/17 23:55 HPI/ROS: CHIEF COMPLAINT: Lower abdominal discomfort loose stool "I think I have UTI" HISTORY OF PRESENT ILLNESS: 77-year-old female arrives via private vehicle complaining of 5 days of loose stool, lower abdominal discomfort. Last time she had similar symptoms she was diagnosed with the UTI and feels that this is similar. She denies dysuria hematuria increased urinary frequency. No fever or chills. No back or flank pain. No nausea or vomiting. 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 Partial hysterectomy. Knee arthroplasty. Bladder suspension surgery. Tonsillectomy. Herniorrhaphy. SOCIAL HISTORY: nonsmoker PHYSICAL EXAM (Prior to examination, patient consented to physical exam, hands were washed and my usual and customary physical exam procedures followed) 1) GENERAL: Well-developed, well-nourished, alert and oriented. Appears to be in no acute distress. 2) HEAD: Normocephalic, atraumatic 3) HEENT: Pupils equal, round, reactive to light bilaterally. Sclera anicteric. [Nasopharynx, oropharynx, clear, no lesions. Moist mucous membranes 4) NECK: Full range of motion, no meningeal signs. 5) LUNGS: Clear auscultation bilaterally, no wheezes, no rhonchi, no retractions. 6) HEART: Regular rate and rhythm, no murmur, no heave, no gallop. 7) ABDOMEN: No guarding, tender to palpation bilateral lower abdomen, 8) MUSCULOSKELETAL: Moving all extremities, no focal areas of tenderness, no obvious trauma. No peripheral edema or discoloration. 9) BACK: No CVA tenderness, no midline vertebral tenderness, no fluctuance, no step-off, no obvious trauma, no visual or palpable abnormality. 10) SKIN: No rash, no petechiae. 11) Psychiatric: Patient is oriented X 3, there is no agitation. DIFFERENTIAL DIAGNOSIS: My differential diagnosis includes, but is not limited to, acute appendicitis, acute cholecystitis, bowel obstruction, acute pancreatitis, ovarian torsion, ectopic , gastritis and urinary tract infection. The patient understands that this diagnosis is provisional and can never be 100% accurate. This is a partial list of diagnoses considered. These considerations are based on history, physical exam, past history and reassessment. (Bartolo Schulz) Constitutional: Initial Vital Signs Temperature (C) 36.8 C 09/04/17 23:20 Heart Rate 76 09/04/17 23:20 Respiratory Rate 16 09/04/17 23:20 Blood Pressure 121/69 H 09/04/17 23:20 O2 Sat (%) 94 09/04/17 23:20 O2 Delivery Mode Room Air Allergies/Adverse Reactions: cefuroxime axetil [From Ceftin] Allergy (Intermediate, Verified 05/04/16 10:50) Hives Home Medications: Medication Instructions Recorded Albuterol [Proventil Inhaler HFA 1 - 2 puffs IH Q4 PRN 12/05/11 (*)] Montelukast Sodium [Singulair 10 10 mg PO DAILY 12/05/11 mg (*)] Cholecalciferol Vit D3 [Vitamin D3 5,000 units PO DAILY@18 09/18/14 (*)] Citalopram [CeleXA 20 MG] 30 mg PO DAILY 09/18/14 Fluticasone Nasal [Flonase Nasal 2 sprays NASAL BID 09/18/14 [place]] Levothyroxine [Synthroid 100 mcg 50 mcg PO DAILY06 09/18/14 (*)] Polyethylene Glycol 3350 [Miralax 8.5 gm PO DAILY 09/18/14 17 gm (*)] Verapamil ER [Calan SR/ER 240MG 240 mg PO DAILY8 09/18/14 (*)] predniSONE 10 mg PO DAILY PRN 09/18/14 traZODone [traZODONE 100MG (*)] 100 mg PO HS 09/18/14 Azelastine HCl 2 sprays EACHNARE BID 05/04/16 Budesonide [BUDESONIDE] 1 cap NASAL BID 05/04/16 Cyanocobalamin [Vitamin B12 (*)] 1,000 mcg PO DAILY 05/04/16 Esomeprazole Magnesium 40 mg PO BID 05/04/16 Fluticasone Propionate [Flovent 2 puffs IN BID 05/04/16 Hfa] Fluticasone Propionate [Flovent 2 puffs IN BID 05/04/16 Hfa] Ketoconazole 1 chema TP MOWETH@0800 05/04/16 Melatonin [Melatonin 3 MG (*)] 3 mg PO HS 05/04/16 Multivitamin [Multi-Day Vitamins] 1 each PO DAILY 05/04/16 NYSTATIN 5 ml PO TID 05/04/16 [place]-3 Fatty Acids [Fish Oil 1000 1,000 mg PO DAILY 05/04/16 mg (*)] Ranitidine HCl 150 mg PO HS 05/04/16 SIMVASTATIN [Zocor] 5 mg PO HS 05/04/16 Acetaminophen [Tylenol 325mg (*)] 650 mg PO Q4HRS PRN #0 tab 05/05/16 Benzonatate [Tessalon Pearles] 200 mg PO TID PRN #28 cap 05/05/16 Codeine Phosphate/Guaifenesin 5 ml PO Q6H PRN #120 ml 05/05/16 [Codeine-Guaifen 10-100 mg/5 ml] Rivaroxaban [Xarelto 15mg (*)] 15 mg PO BIDMEAL #42 tab 05/05/16 Rivaroxaban [Xarelto] 20 mg PO DAILY #14 tab 05/05/16 Medical Decision Making <Bartolo Schulz - Last Filed: 09/05/17 00:14> - Diagnostics Imaging: Discussed imaging studies w/ stage manager Radiologist <Chela Tellez - Last Filed: 09/05/17 03:30> - Diagnostics Imaging Results: CT abdomen pelvis reveals constipation, no other acute findings, discussed with Dr. Brown of Radiology. (Chela Tellez) ED Course/Re-evaluation: 12:15 a.m.: Patient's urinalysis is clear. She is complaining of lower abdominal pain and tender palpation lower abdomen. Discussed possible etiologies including but not limited to acute appendicitis, diverticulitis. I recommended laboratory studies and CT imaging of the abdomen. I saw this patient independently based on established practice protocols. Care of patient under supervision of secondary supervising physician Dr Chela Tellez with whom I discussed care. (Bartolo Schulz) The patient's CT scan revealed constipation without any other acute findings. I re-evaluated her and she is feeling better. I discussed the results of her CT scan with her. She does have a history of constipation which has become worse lately. She is having some loose stools in fact. I have encouraged her can to continue using MiraLax. I will also give her Mag citrate to try when she arrives home. She is happy with this plan. PHYSICIAN DOCUMENTATION: The patient was evaluated and managed by the Physician Cellophaner. My co- signature indicates that I have reviewed this chart and I agree with the findings and plan of care as documented. I am the secondary supervising physician. (Chela Tellez) - Data Points Laboratory Results: Laboratory Results 09/05/17 00:23 09/05/17 00:23 09/05/17 09/05/17 09/05/17 00:30 00:23 00:23 WBC RBC Hgb POC Hgb 12.6 gm/dL gm/dL (12.6-16.3) Hct POC Hct 37 % L % (38-47) MCV MCH MCHC RDW Plt Count MPV Neut % (Auto) Lymph % (Auto) [place] % (Auto) Eos % (Auto) Baso % (Auto) Nucleat RBC Rel Count Absolute Neuts (auto) Absolute Lymphs (auto) Absolute Monos (auto) Absolute Eos (auto) Absolute Basos (auto) Absolute Nucleated RBC Immature Gran % Immature Gran # PT 15.6 SEC H SEC (12.0-15.0) INR 1.22 H (0.83-1.16) APTT 28.7 SEC SEC (23.0-38.0) POC Sodium 140 mEq/L mEq/L (135-145) Sodium 136 mEq/L mEq/L (135-145) POC Potassium 3.0 mEq/L L mEq/L (3.3-5.0) Potassium 3.2 mEq/L L mEq/L (3.3-5.0) POC Chloride 101 mEq/L mEq/L (97-110) Chloride 104 mEq/L mEq/L (97-110) Carbon Dioxide 27 mEq/l mEq/l (22-31) Anion Gap 5 mEq/L L mEq/L (8-16) POC BUN 25 mg/dL H mg/dL (7-23) BUN 26 mg/dL H mg/dL (7-23) Creatinine 0.9 mg/dL mg/dL (0.6-1.0) POC Creatinine 1.1 mg/dL H mg/dL (0.6-1.0) Estimated GFR > 60 Glucose 197 mg/dL H mg/dL (70-100) POC Glucose 211 mg/dL H mg/dL (70-100) Calcium 8.7 mg/dL mg/dL (8.5-10.4) Total Bilirubin 0.5 mg/dL mg/dL (0.1-1.4) Conjugated Bilirubin 0.4 mg/dL mg/dL (0.0-0.5) Unconjugated Bilirubin 0.1 mg/dL mg/dL (0.0-1.1) AST 18 IU/L IU/L (14-46) ALT 28 IU/L IU/L (9-52) Alkaline Phosphatase 85 IU/L IU/L (38-126) Total Protein 6.6 g/dL g/dL (6.3-8.2) Albumin 3.7 g/dL g/dL (3.5-5.0) Lipase 308 IU/L H IU/L (23-300) Urine Color Urine Appearance Urine pH Ur Specific [place] Urine Protein Urine Ketones Urine Blood Urine Nitrate Urine Bilirubin Urine Urobilinogen Ur Leukocyte Esterase Urine RBC Urine WBC Ur Epithelial Cells Urine Mucus Urine Glucose 09/05/17 09/04/17 00:23 23:48 WBC 8.20 10^3/uL 10^3/uL (3.80-9.50) RBC 4.08 10^6/uL L 10^6/uL (4.18-5.33) Hgb 12.2 g/dL L g/dL (12.6-16.3) POC Hgb Hct 36.8 % L % (38.0-47.0) POC Hct MCV 90.2 fL fL (81.5-99.8) MCH 29.9 pg pg (27.9-34.1) MCHC 33.2 g/dL g/dL (32.4-36.7) RDW 14.0 % % (11.5-15.2) Plt Count 225 10^3/uL 10^3/uL (150-400) MPV 8.8 fL fL (8.7-11.7) Neut % (Auto) 59.4 % % (39.3-74.2) Lymph % (Auto) 25.7 % % (15.0-45.0) [place] % (Auto) 7.4 % % (4.5-13.0) Eos % (Auto) 6.0 % % (0.6-7.6) Baso % (Auto) 0.9 % % (0.3-1.7) Nucleat RBC Rel Count 0.0 % % (0.0-0.2) Absolute Neuts (auto) 4.87 10^3/uL 10^3/uL (1.70-6.50) Absolute Lymphs (auto) 2.11 10^3/uL 10^3/uL (1.00-3.00) Absolute Monos (auto) 0.61 10^3/uL 10^3/uL (0.30-0.80) Absolute Eos (auto) 0.49 10^3/uL H 10^3/uL (0.03-0.40) Absolute Basos (auto) 0.07 10^3/uL 10^3/uL (0.02-0.10) Absolute Nucleated RBC 0.00 10^3/uL 10^3/uL (0-0.01) Immature Gran % 0.6 % % (0.0-1.1) Immature Gran # 0.05 10^3/uL 10^3/uL (0.00-0.10) PT INR APTT POC Sodium Sodium POC Potassium Potassium POC Chloride Chloride Carbon Dioxide Anion Gap POC BUN BUN Creatinine POC Creatinine Estimated GFR Glucose POC Glucose Calcium Total Bilirubin Conjugated Bilirubin Unconjugated Bilirubin AST ALT Alkaline Phosphatase Total Protein Albumin Lipase Urine Color YELLOW Urine Appearance CLEAR Urine pH 5.0 (5.0-7.5) Ur Specific [place] 1.013 (1.002-1.030) Urine Protein NEGATIVE (NEGATIVE) Urine Ketones NEGATIVE (NEGATIVE) Urine Blood NEGATIVE (NEGATIVE) Urine Nitrate NEGATIVE (NEGATIVE) Urine Bilirubin NEGATIVE (NEGATIVE) Urine Urobilinogen NEGATIVE EU EU (0.2-1.0) Ur Leukocyte Esterase NEGATIVE (NEGATIVE) Urine RBC NONE SEEN /hpf /hpf (0-3) Urine WBC 1-3 /hpf /hpf (0-3) Ur Epithelial Cells NONE SEEN /lpf /lpf (NONE-1+) Urine Mucus TRACE /lpf /lpf (NONE-1+) Urine Glucose NEGATIVE (NEGATIVE) Medications Given: Discontinued Medications Magnesium Citrate (Magnesium Citrate) 300 ml PO ONCE ONE Stop: 09/05/17 02:04 Last Admin: 09/05/17 02:20 Dose: 1 btl Point of Care Test Results: Chemistry 09/05/17 00:30 POC Sodium 140 mEq/L mEq/L (135-145) POC Potassium 3.0 mEq/L L mEq/L (3.3-5.0) POC Chloride 101 mEq/L mEq/L (97-110) POC BUN 25 mg/dL H mg/dL (7-23) POC Creatinine 1.1 mg/dL H mg/dL (0.6-1.0) POC Glucose 211 mg/dL H mg/dL (70-100) ISTAT H&H 09/05/17 00:30 POC Hgb 12.6 gm/dL gm/dL (12.6-16.3) POC Hct 37 % L % (38-47) Departure <Bartolo Schulz - Last Filed: 09/05/17 00:14> <Chela Tellez - Last Filed: 09/05/17 03:30> - Departure Disposition: Home, Routine, Self-Care Clinical Impression: Lower abdominal pain Constipation Qualifiers: Constipation type: unspecified constipation type Qualified Code(s): K59.00 - Constipation, unspecified Condition: Good Instructions: Magnesium Citrate (By mouth), Constipation (ED) Additional Instructions: I recommend that you continue taking your MiraLax. Please make sure to drink plenty of fluids throughout the day. Please use the bottle of magnesium citrate when you return home. You can also consider trying a Fleet's enema which you can purchased [id number]. You should follow up with your primary care doctor if your constipation continues. Referrals: Meli Anthony MD [Primary Care Provider] - As per Instructions
[2017-09-05 00:34] LABS: PLATELET COUNT 225 10^3/uL (150-400)
[2017-09-05 00:44] LABS: INR 1.22 (0.83-1.16); PROTIME(PATIENT) 15.6 SEC (12.0-15.0)
[2017-09-05] MEDS ORDERED: IOPAMIDOL (ISOVUE-300) 100 ML BTL ONE (01:08)
[2017-09-05] MEDS ORDERED: MAGNESIUM CITRATE 300 ML BOTTLE PO ONE (02:03)
[2017-09-05 02:28] VITALS: BP 144/76
--- NOTE | 2017-09-05 08:45 | GPN ---
GENERAL PROCEDURE NOTE CT of the Abdomen and Pelvis, with contrast. CT NUMBER: [id number]. HISTORY: Abdominal pain. CONTRAST: 85 cc of Isovue 300 injected intravenously with a power injector without complication. TECHNIQUE: Dose reduction protocol was utilized. [address] through the abdoman and pelvis. COMPARISON: Prior CT September 25, 2014, and ultrasound April 15, 2017. FINDINGS: Abdomen: The gallbladder is not distended. There is no evidence for calcified gallstones or cholecystitis. There is a chronic lobulated cyst in the posterior-inferior right hepatic lobe that measures 5.3 x 5 cm in diameter. There is a stable, partially included pericardial cyst in the right cardiophrenic angle that is just inferior to the right inferior pulmonary vein. There is atherosclerotic calcification of a normal-sized abdominal aorta. There is a small right lower pole renal cyst without evidence of stone formation or renal obstruction in either kidney or ureter. The liver, spleen, pancreas, bowel , and mesentery are otherwise unremarkable, PELVIS FINDINGS: There is rectal and vaginal prolapse. There is prominent fecal material throughout the colon. There are a few scattered diverticula in the ascending colon and sigmoid colon, and a single diverticulum in the descending colon without evidence of diverticulitis. The patient has had a prior hysterectomy. The ovaries remain, and there was a small right ovarian cyst. The right ovary is adjacent to the right side of the sigmoid colon. There is a normal vermiform appendix with a small calcification at its tip. The patient has a right hip replacement. There is severe degenerative facet disease at L5-S1. There is disk space narrowing with mild spondylolithesis at L4 -L5. Impression: 1. Constipation. 2. Rectal and vaginal prolapse. Emergency on-call results discussed with Dr. Tellez at 1:57 am. /[id number]/MODL MTDD
== END 2017-09-05 02:29 | disposition home or self-care (01) ==
DX: K59.00 Constipation, unspecified (principal); J45.909 Unspecified asthma, uncomplicated; Z90.710 Acquired absence of both cervix and uterus
CPT/HCPCS: 74177; 99285; Q9967; 82435-PO; 82565-PO; 82947-PO; 84132-PO; 84295-PO; 84520-PO; 85014-PO

== ENCOUNTER → 2017-12-20 | Outpatient (CLI) | payer OTHER, BC ==
[~2017-12-20] MED LIST: IOPAMIDOL (ISOVUE-300) 100 ML BTL ONE
== END ==
LOC: FIMAGING 11:54
PROVIDERS: ATTEND Otolaryngology
DX: H92.02 Otalgia, left ear (principal); M50.31 Other cervical disc degeneration, high cervical region; M46.96 Unspecified inflammatory spondylopathy, lumbar region
CPT/HCPCS: 70491; Q9967; 82565-PO

== ENCOUNTER → 2018-02-26 | Outpatient (CLI) | payer OTHER, BC | LOC: FCPNEURO 21:00 | PROVIDERS: ATTEND Psychiatry & Neurology Sleep Medicine | DX: J96.11 Chronic respiratory failure with hypoxia (principal); G47.33 Obstructive sleep apnea (adult) (pediatric) ==

== ENCOUNTER → 2018-04-05 | Outpatient (CLI) | payer OTHER, BC | LOC: FIMAGING 11:21 | PROVIDERS: ATTEND Internal Medicine | DX: Z12.31 Encounter for screening mammogram for malignant neoplasm of breast (principal); Z80.3 Family history of malignant neoplasm of breast ==

== ENCOUNTER 2018-04-11 16:20 | Emergency (ER) | payer OTHER, BC ==
--- NOTE | 2018-04-11 16:59 | EDPHY ---
H & P Stated Complaint: resp prob/coughhad cxr /levaquin/+flu rx tamiflu/seen at [facility] Time Seen by Provider: 04/11/18 16:35 HPI/ROS: CHIEF COMPLAINT: Chronic cough HISTORY OF PRESENT ILLNESS: The patient presents to the ED with a chronic cough. She has had symptoms for the past month. She was initially treated with Tamiflu and Levaquin. The patient has been on a prednisone taper for the past week. She is also using albuterol. The patient is followed at [facility]. She reportedly was advised to come to the ED for any ongoing cough. Patient denies acute fever. She denies pleuritic chest pain. She denies asymmetric calf pain or swelling. REVIEW OF SYSTEMS: A comprehensive 10 point review of systems is otherwise negative aside from elements mentioned in the history of present illness. Source: Patient Exam Limitations: No limitations - Personal History Current Tetanus Diphtheria and Acellular Pertussis (TDAP): Yes Tetanus Vaccine Date: 2011 - Medical/Surgical History Hx Asthma: Yes Hx Chronic Respiratory Disease: No Hx Diabetes: No Hx Cardiac Disease: No Hx Renal Disease: No Hx Cirrhosis: No Hx Alcoholism: No Hx HIV/AIDS: No Hx Splenectomy or Spleen Trauma: No Other PMH: asthma, hysterectomy, left knee surgery, bladder suspension, tonsillectomy, sinus surgery, left foot x 2, hernia repair, parathyroid surgery , right wrist ganglion cyst removal, bilateral breast biopsies x 2, r hip replacement, TONYA, GERD, R KNEE REPLACEMENT, PE'S - Social History Smoking Status: Never smoked - Physical Exam Exam: General Appearance: Alert, no distress Eyes: Pupils equal and round no pallor or injection ENT, Mouth: Mucous membranes moist Respiratory: Fine expiratory wheezing Cardiovascular: Regular rate and rhythm Gastrointestinal: Abdomen is soft and nontender, no masses, bowel sounds normal Neurological: 5/5 strength all 4 extremities Skin: Warm and dry, no rashes Musculoskeletal: Neck is supple nontender Extremities: symmetrical, full range of motion Constitutional: Initial Vital Signs Temperature (C) 36.6 C 04/11/18 16:28 Heart Rate 70 04/11/18 16:28 Respiratory Rate 20 04/11/18 16:28 Blood Pressure 145/65 H 04/11/18 16:28 O2 Sat (%) 95 04/11/18 16:28 O2 Delivery Mode Room Air Allergies/Adverse Reactions: cefuroxime axetil [From Ceftin] Allergy (Intermediate, Verified 04/11/18 16:26) Hives Home Medications: Medication Instructions Recorded Albuterol [Proventil Inhaler HFA 1 - 2 puffs IH Q4 PRN 12/05/11 (*)] Montelukast Sodium [Singulair 10 10 mg PO DAILY 12/05/11 mg (*)] Cholecalciferol Vit D3 [Vitamin D3 5,000 units PO DAILY@18 09/18/14 (*)] Citalopram [CeleXA 20 MG] 30 mg PO DAILY 09/18/14 Fluticasone Nasal [Flonase Nasal 2 sprays NASAL BID 09/18/14 [place]] Levothyroxine [Synthroid 100 mcg 50 mcg PO DAILY06 09/18/14 (*)] Polyethylene Glycol 3350 [Miralax 8.5 gm PO DAILY 09/18/14 17 gm (*)] Verapamil ER [Calan SR/ER 240MG 240 mg PO DAILY8 09/18/14 (*)] predniSONE 10 mg PO DAILY PRN 09/18/14 traZODone [traZODONE 100MG (*)] 100 mg PO HS 09/18/14 Azelastine HCl 2 sprays EACHNARE BID 05/04/16 Budesonide [BUDESONIDE] 1 cap NASAL BID 05/04/16 Cyanocobalamin [Vitamin B12 (*)] 1,000 mcg PO DAILY 05/04/16 Esomeprazole Magnesium 40 mg PO BID 05/04/16 Fluticasone Propionate [Flovent 2 puffs IN BID 05/04/16 Hfa] Fluticasone Propionate [Flovent 2 puffs IN BID 05/04/16 Hfa] Ketoconazole 1 chema TP MOWETH@0800 05/04/16 Melatonin [Melatonin 3 MG (*)] 3 mg PO HS 05/04/16 Multivitamin [Multi-Day Vitamins] 1 each PO DAILY 05/04/16 NYSTATIN 5 ml PO TID 05/04/16 [place]-3 Fatty Acids [Fish Oil 1000 1,000 mg PO DAILY 05/04/16 mg (*)] Ranitidine HCl 150 mg PO HS 05/04/16 SIMVASTATIN [Zocor] 5 mg PO HS 05/04/16 Acetaminophen [Tylenol 325mg (*)] 650 mg PO Q4HRS PRN #0 tab 05/05/16 Benzonatate [Tessalon Pearles] 200 mg PO TID PRN #28 cap 05/05/16 Codeine Phosphate/Guaifenesin 5 ml PO Q6H PRN #120 ml 05/05/16 [Codeine-Guaifen 10-100 mg/5 ml] Rivaroxaban [Xarelto 15mg (*)] 15 mg PO BIDMEAL #42 tab 05/05/16 Rivaroxaban [Xarelto] 20 mg PO DAILY #14 tab 05/05/16 Medical Decision Making - Diagnostics Imaging Results: Imaging Impressions Chest X-Ray 04/11/18 16:56 Impression: Stable chest. Mild cardiac enlargement.. ED Course/Re-evaluation: Patient presents to the ED with frustrations surrounding a chronic cough. The patient has been treated with Tamiflu, antibiotics and steroids. Her chest x- ray demonstrates no evidence of a focal infiltrate. Her vital signs are stable. She is currently under the care of pulmonary experts at [facility]. At this point time I have no further recommendations for the patient other than to continue her steroids and inhalers. She should clearly return to the ED for respiratory distress, chest pain or other concerns. Differential Diagnosis: Differential diagnosis considered includes asthma, bronchitis, pneumonia Departure - Departure Disposition: Home, Routine, Self-Care Clinical Impression: Chronic cough Condition: Good Instructions: Chronic Cough (ED) Additional Instructions: 1. Please continue to work with [facility] for evaluation of your chronic cough. 2. Your chest x-ray demonstrates no evidence of a acute abnormality. 3. Aside from continuing your inhaler and steroid I have no further recommendations regarding your cough. Referrals: Meli Anthony MD [Primary Care Provider] - As per Instructions
--- NOTE | 2018-04-11 18:15 | CPEKG ---
Test Reason : OPEN Blood Pressure : / mmHG Vent. Rate : 064 BPM Atrial Rate : 065 BPM P-R Int : 175 ms QRS Dur : 101 ms QT Int : 449 ms P-R-T Axes : 061 016 045 degrees QTc Int : 464 ms Sinus rhythm Ventricular trigeminy Probable left atrial enlargement Confirmed by Amado Gilmore ([id number]) on 04/11/2018 6:14:45 PM Referred By: Amado Gilmore Confirmed By:Amado Gilmore
[2018-04-11 18:36] VITALS: BP 139/74
== END 2018-04-11 18:37 | disposition home or self-care (01) ==
DX: R05 Cough (principal); J45.909 Unspecified asthma, uncomplicated; K21.9 Gastro-esophageal reflux disease without esophagitis

== ENCOUNTER → 2018-04-19 | Outpatient (CLI) | payer OTHER, BC | LOC: BHFA 08:00 | PROVIDERS: ATTEND Internal Medicine Cardiovascular Disease | DX: R07.9 Chest pain, unspecified (principal); I38 Endocarditis, valve unspecified; I26.99 Other pulmonary embolism without acute cor pulmonale | CPT/HCPCS: 78452; 93017; 93306; A9500; J2785 ==

== ENCOUNTER → 2018-05-19 | Outpatient (CLI) | payer OTHER, BC | LOC: FCPNEURO 20:00 | PROVIDERS: ATTEND Psychiatry & Neurology Sleep Medicine | DX: G47.31 Primary central sleep apnea (principal); J96.11 Chronic respiratory failure with hypoxia ==

== ENCOUNTER → 2018-05-25 | Outpatient (CLI) | payer OTHER, BC | LOC: FIMAGING 09:14 | PROVIDERS: ATTEND Internal Medicine | DX: Z13.820 Encounter for screening for osteoporosis (principal); M85.89 Other specified disorders of bone density and structure, multiple sites ==